=== PATIENT | male | born 1965 | race Caucasian/White ===

== ENCOUNTER 2016-03-17 08:33 | Inpatient (IN) | payer OTHER ==
[~2016-03-17] VITALS: Ht 180.3 cm; Wt 108.9 kg
--- NOTE | ~2016-03-17 | EKG ---
[address] [address] ELECTROCARDIOGRAM REPORT Name: JOMAR OCONNOR Room #: PRE IN [facility]#: [id number] Admission: Attend Phys: Osei Lambert MD Discharge: Date of : 65 Report #: [id number] THIS REPORT FOR: //name// [facility] Test Date: 2016-06-29 Test Time: 08:56:43 Pat Name: JOMAR OCONNOR Department: Room: Gender: M [employer]eping [employer] Operator: merissa bernabe : 1965 Requested By: Osei Lambert Order Number: [id number] MD: Joon Jaramillo Measurements Intervals [place] Rate: 78 P: 51 NJ: 115 QRS: 62 QRSD: 114 T: -3 QT: 400 QTc: 456 Interpretive Statements Sinus rhythm Borderline short [place] interval Borderline intraventricular conduction delay Borderline T abnormalities, inferior leads No previous ECG available for comparison Electronically Signed On 06-29-2016 9:30:55 CDT by Joon Jaramillo [email or web address] <ELECTRONICALLY SIGNED> By: Joon Jaramillo MD, [facility] 06/29/16 0930 D: 04/855 5 Joon Jaramillo MD, FACC /EPI
--- NOTE | ~2016-03-17 | H ---
[facility] [place] [address] HISTORY AND PHYSICAL Name: JOMAR OCONNOR Room #: 541-P DIS IN M.R.#: [id number] Admission: 07/07/16 Attend Phys: Osei Lambert MD Discharge: 07/09/16 Date of : 65 Report #: [id number] THIS REPORT FOR: //name// For History and Physical, please see office documentation/handwritten note in the patient's medical record. <ELECTRONICALLY SIGNED> By: Osei Lambert MD 07/14/16 0720 1223 Osei Lambert MD /
--- NOTE | ~2016-03-17 | O ---
[facility] [place] [address] OPERATIVE REPORT Name: JOMAR OCONNOR Room #: 541-P [facility] IN M.R.#: [id number] Admission: 07/07/16 Attend Phys: Osei Lambert MD Discharge: 07/09/16 Date of : 65 Report #: [id number] THIS REPORT FOR: //name// CC: Steven Lambert DATE OF SERVICE: 07/07/2016 PREOPERATIVE DIAGNOSES: 1. Right hip degenerative joint disease, severe. 2. Obesity with body mass index of 34.43. POSTOPERATIVE DIAGNOSES: 1. Right hip degenerative joint disease, severe. 2. Obesity with body mass index of 34.43. PROCEDURE: Right total hip arthroplasty. SURGEON: Osei Lambert MD. MAGAZINE JOURNALIST: Delbert Omalley, nurse practitioner. INDICATIONS FOR MAGAZINE JOURNALIST: During the course of operation, extensive manipulation, retraction, and limb positioning was required. This was afforded to me by my commercial real estate assistant. This was especially important in light of the patient's size, which did involve additional time for the procedure. ANESTHESIA: General. INDICATIONS: See hospital H and P. IMPLANTS UTILIZED: We used a Abraham hip system, Secur-Fit Max hip stem, 132 degree neck angle, size 9. We used a ceramic C taper femoral head, 36 outer diameter. We used a Tritanium solid back shell 56 outer diameter and Trident X3 elevated rim insert. DESCRIPTION OF PROCEDURE: After adequate general anesthesia had been obtained, the patient was placed in lateral decubitus position, right hip up. Right hip and lower extremity were prepped and draped in the usual meticulous sterile fashion. Posterolateral incision was made to the hip. SubQ divided sharply. IT band gluteal fascia was divided. This layer was retracted with a Charnley retractor. The hip was internally rotated and external rotators were detached at their insertion, tagged, and retracted posteriorly. Capsular incision was made and likewise, it was tagged and retracted posteriorly. Hip was then dislocated. Soft tissue removed from the base of the femoral neck. Starter [address] [address] OPERATIVE REPORT Name: JOMAR OCONNOR Room #: 541-P DIS IN M.R.#: [id number] Admission: 07/07/16 Attend Phys: Osei Lambert MD Discharge: 07/09/16 Date of : 65 Report #: [id number] placed at the base of the neck and advanced to the canal. The canal was sequentially reamed to a size 9. Neck osteotomy performed at the appropriate height. Attention was then directed to the acetabulum. This was circumferentially exposed. Labrum was excised. Reamers were used to ream the acetabulum sequentially to a size 54. 54 trial got a good press fit, so we reamed to 55, irrigated copiously, and then impacted the shell into position. Cap screw was placed. The liner was placed, after again irrigating in the elevated portion placed posteriorly. Attention was redirected to the femur. Femur was sequentially broached to a size 9. Excellent torsional stability was obtained. Hip was trial reduced, and with +0 neck Length, we had the best stability parameters and equalization of leg lengths. We then removed the trial components, and then implanted the actual implant after copious irrigation. Hip was reduced once again. At this time, meticulous hemostasis was obtained. The capsule and external rotators were reattached to the trochanter by placing drill holes in the trochanter, passing the sutures through the drill holes and tying them over a bone bridge. Drains were placed deep and superficial. IT band gluteal fascia closed with combination of interrupted nyzxeu-qy-xviak #1 Vicryl, as well as running #1 Tevdek. Subq closed with 2-0 Monocryl, skin closed with stevie. Sterile compressive dressing was applied. <ELECTRONICALLY SIGNED> By: Osei Lambert MD 07/14/16 0720 1308 1518 Osei Lambert MD /nt
[2016-06-25] MEDS ORDERED: ASPIR 8181 MG PO (11:27)
[2016-06-25] MEDS ORDERED: IBUPROFEN 200200 M1 PO (11:28)
[2016-06-25] MEDS ORDERED: OMEPRAZOLE40 MG PO (11:44)
[2016-06-25] MEDS ORDERED: TOPROL XL100 MG PO (11:44)
[2016-06-29 09:04] LABS: URINE BILIRUBIN NEGATIVE (Negative); URINE BLOOD TRACE (Negative); URINE COLOR YELLOW; URINE GLUCOSE-RANDOM* NEGATIVE (Negative); URINE KETONES NEGATIVE (Negative); URINE LEUKOCYTES-REFLEX NEGATIVE (Negative); URINE PROTEIN (DIPSTICK) NEGATIVE (Negative); URINE UROBILINOGEN 0.2 E.U./dl (0.2-1.0)
[2016-06-29 09:05] LABS: HEMATOCRIT 42.1 % (42.0-52.0); HEMOGLOBIN 14.5 gm/dL (14.0-18.0); MCH 30.5 pg (26.0-34.0); MCHC 34.4 g/dL (28.0-37.0); MCV 88.5 fL (80.0-100.0); RBC 4.76 mil/uL (4.50-6.00); RDW 12.8 % (10.5-14.5); WBC 6.6 thou/uL (4.0-11.0)
[2016-06-29 09:10] LABS: ALBUMIN 4.3 g/dL (3.4-5.0); CALCIUM 9.2 mg/dL (8.5-10.1); POTASSIUM 4.3 mmol/L (3.5-5.1)
[2016-06-29 09:16] LABS: PROTIME 10.4 Seconds (9.3-11.4)
[2016-07-07] VITALS (8 sets, daily range): BP systolic 110–152; BP diastolic 53–81
[2016-07-07 13:59] LABS: URINE BILIRUBIN NEGATIVE (Negative); URINE BLOOD 2+ (Negative); URINE COLOR YELLOW; URINE GLUCOSE-RANDOM* NEGATIVE (Negative); URINE KETONES NEGATIVE (Negative); URINE NITRITE NEGATIVE (Negative); URINE PROTEIN (DIPSTICK) 1+ (Negative); URINE UROBILINOGEN 0.2 E.U./dl (0.2-1.0)
[2016-07-07 14:13] LABS: SQUAMOUS None Seen /LPF (0-3)
[2016-07-07 14:14] LABS: BACTERIA 1-9 Few /HPF (None Seen); CASTS None Seen /LPF (None Seen); CRYSTALS None Seen /LPF (None Seen); URINE RBC 3-10 Few /HPF (0-2); URINE WBC 0-5 Rare /HPF (0-5)
[2016-07-08 04:00] VITALS: BP 113/67
[2016-07-08 05:54] LABS: HEMATOCRIT 35.1 % (42.0-52.0); HEMOGLOBIN 12.2 gm/dL (14.0-18.0); MCH 30.7 pg (26.0-34.0); MCHC 34.8 g/dL (28.0-37.0); MCV 88.3 fL (80.0-100.0); RBC 3.97 mil/uL (4.50-6.00); RDW 12.3 % (10.5-14.5)
[2016-07-08 15:42] VITALS: BP 113/67
[2016-07-08 15:46] VITALS: BP 113/67
[2016-07-08 15:55] VITALS: BP 113/67
[2016-07-08 15:58] VITALS: BP 125/71
[2016-07-08 20:00] VITALS: BP 143/60
[2016-07-09 04:00] VITALS: BP 113/65
[2016-07-09 05:39] LABS: HEMATOCRIT 33.7 % (42.0-52.0); HEMOGLOBIN 11.3 gm/dL (14.0-18.0); MCH 29.9 pg (26.0-34.0); MCHC 33.6 g/dL (28.0-37.0); MCV 89.2 fL (80.0-100.0); RBC 3.77 mil/uL (4.50-6.00); RDW 12.1 % (10.5-14.5); WBC 11.7 thou/uL (4.0-11.0)
[2016-07-09 08:45] VITALS: BP 120/76
[2016-07-09 10:37] VITALS: BP 113/67
[2016-07-09 12:37] VITALS: BP 113/67
[2016-07-09 12:41] VITALS: BP 113/67
[2016-07-09] MEDS ORDERED: PERCOCET 10-321 EACH PO (12:43)
[2016-07-09] MEDS ORDERED: XARELTO10 MG PO (12:44)
== END 2016-07-09 13:50 | disposition home health service (06) | DRG 470 ==
LOC: PRE 08:33 → TBA 07-07 05:41 → 5S 07-07 05:41 → PRE 07-07 06:15 → 5S 07-07 14:49 → PRE 07-07 16:09 → 5S 07-09 13:50
PROVIDERS: Orthopaedic Surgery
PROC: 0SR903Z Replacement of Right Hip Joint with Ceramic Synthetic Substitute, Open Approach (ICD-10-PCS; principal; 2016-07-07)
DX: M16.11 Unilateral primary osteoarthritis, right hip (principal); E66.9 Obesity, unspecified; Z68.34 Body mass index [BMI] 34.0-34.9, adult; K21.9 Gastro-esophageal reflux disease without esophagitis; F32.9 Major depressive disorder, single episode, unspecified; F41.9 Anxiety disorder, unspecified; G47.00 Insomnia, unspecified; Z79.82 Long term (current) use of aspirin
CPT/HCPCS: 10785; 50010; 50101; 50382; 50414; 50455; 50855; 51412; 51771; 53000; 55388; 56521; 56525; 56527; 56530; 57095; 62110; 62900; 70005

== ENCOUNTER → 2021-02-07 | Outpatient (CLI) | payer OTHER ==
[~2021-02-07] MED LIST: ASPIR 8181 MG PO; IBUPROFEN 200200 M1 PO; OMEPRAZOLE40 MG PO; PERCOCET 10-321 EACH PO; TOPROL XL100 MG PO; XARELTO10 MG PO
== END ==
LOC: CAT 09:35
PROVIDERS: ATTEND Family Medicine
DX: Z13.6 Encounter for screening for cardiovascular disorders (principal)